=== PATIENT | male | born 1995 | race American Indian/Alaskan Native ===

== ENCOUNTER 2017-02-17 09:05 | Emergency (ER) | payer OTHER ==
--- NOTE | 2017-02-17 11:08 | XRay Report ---
RIGHT ANKLE: Injury, pain. The bones are well mineralized with normal bony contours and joint alignment. No fractures or destructive changes are noted and the adjacent soft tissues are normal. IMPRESSION: Normal study. RIGHT FOOT: Injury, pain. The bony architecture is intact. Bony alignment is normal. No soft tissue abnormalities are seen. The joint spaces appear preserved. IMPRESSION: Normal right foot.
--- NOTE | 2017-02-17 14:05 | Emergency Department Report ---
ED Lower Extremity HPI - General Chief Complaint: Extremity Injury, Lower Stated Complaint: FALL,RIGHT ANKLE INJURY Time Seen by Provider: 02/17/17 14:04 Source: patient, family Mode of arrival: Wheelchair Limitations: No Limitations - History of Present Illness Initial Comments: Patient here report that he fell down approximately 11 steps last night. He said it injured his right foot and ankle. Pain is 8 out of 10 and throbbing/ aching. Worse with weight. Better with resting. He reports swelling to right foot. Denies any numbness or tingling. Denies any head injury. He said he is unable to weight-bear. Complaint: ankle injury, foot injury, fall -: Last night Injury: Ankle: Right (pain after falling), Foot: Right (pain after falling) Type of Injury: other (fell downstairs) Place: home Severity: severe Severity scale (0 -10): 8 Improves With: rest Worsens With: weight bearing, palpation Context: fall Associated Symptoms: swelling, unable to bear weight. denies: numbness, tingling Treatments Prior to Arrival: splint (none) - Related Data Previous Rx's Medication Instructions Recorded Last Taken Type traMADol [Ultram 50 MG tab] 50 mg PO Q6HR PRN #20 tablet 02/14/13 Unknown Rx Ibuprofen [Motrin 800 MG tab] 800 mg PO TID PRN #15 tablet 02/17/17 Unknown Rx Allergies Allergy/AdvReac Type Severity Reaction Status Date / Time No Known Allergies Allergy Verified 02/17/17 09:37 ED Review of Systems ROS: Stated complaint: FALL,RIGHT ANKLE INJURY Other details as noted in HPI Comment: All other systems reviewed and negative Constitutional: no symptoms reported Respiratory: no symptoms reported Cardiovascular: denies: chest pain, palpitations, dyspnea on exertion, edema, syncope, paroxysmal nocturnal dyspnea Gastrointestinal: denies: abdominal pain, nausea, vomiting, diarrhea Musculoskeletal: joint swelling, arthralgia. denies: back pain, myalgia Skin: denies: rash Neurological: abnormal gait. denies: headache, weakness, numbness, paresthesias , confusion, vertigo ED Past Medical Hx - Past Medical History Previous Medical History?: No - Surgical History Past Surgical History?: No - Family History Family history: no significant - Social History Smoking Status: Current Every Day Smoker Substance Use Type: None - Medications Home Medications: Home Medications Medication Instructions Recorded Confirmed Last Taken Type traMADol [Ultram 50 MG tab] 50 mg PO Q6HR PRN #20 tablet 02/14/13 Unknown Rx Ibuprofen [Motrin 800 MG tab] 800 mg PO TID PRN #15 tablet 02/17/17 Unknown Rx ED Physical Exam - General Limitations: No Limitations General appearance: alert, in no apparent distress - Head Head exam: Present: atraumatic, normocephalic, normal inspection - Expanded Head Exam Expanded Head exam: Absent: laceration, abrasion, contusion, hematoma, racoon eyes, flores's sign, general tenderness, tenderness of temporal artery, CSF rhinorrhea , CSF otorrhea - Eye Eye exam: Present: normal appearance, PERRL, EOMI. Absent: nystagmus, periorbital swelling, periorbital tenderness Pupils: Absent: normal accommodation - Neck Neck exam: Present: normal inspection, full ROM, other (No C-spine tenderness). Absent: tenderness, meningismus, lymphadenopathy - Expanded Neck Exam Expanded Neck exam: Absent: tenderness, midline deformity, anterior neck swelling, tracheal deviation - Respiratory Respiratory exam: Present: normal lung sounds bilaterally. Absent: respiratory distress, chest wall tenderness, accessory muscle use - Cardiovascular Cardiovascular Exam: Present: regular rate, normal rhythm, normal heart sounds. Absent: systolic murmur, diastolic murmur - GI/Abdominal GI/Abdominal exam: Present: soft, normal bowel sounds. Absent: distended, tenderness, guarding, rebound, rigid, organomegaly, mass, bruit, pulsatile mass , hernia - Extremities Exam Extremities exam: Present: normal inspection, tenderness (to palpate the right outer foot and ankle), normal capillary refill, joint swelling (mild swelling to right foot), other (No clubbing, cyanosis or edema noted to extremities. +2 pulses to extremities. No neurovascular compromise.). Absent: full ROM ( patient with limited range of motion to right foot due to injury), pedal edema, calf tenderness - Expanded Lower Extremity Exam Right Hip exam: Present: normal inspection, full ROM, pelvic stability. Absent: tenderness, swelling, abrasion, laceration, ecchymosis, deformity, crepidus, dislocation, erythema, external rotation, internal rotation, shortening Upper Leg exam: Present: normal inspection, full ROM. Absent: tenderness, swelling, abrasion, laceration, ecchymosis, deformity, crepidus, dislocation, erythema Knee exam: Present: normal inspection, full ROM, full knee extension. Absent: tenderness, swelling, abrasion, laceration, ecchymosis, deformity, crepidus, dislocation, erythema, effusion, pain w/ pronation/supination, posterior draw sign, pain/laxity with valgus, pain/laxity with varus Lower Leg exam: Present: normal inspection, full ROM. Absent: tenderness, swelling, abrasion, laceration, ecchymosis, deformity, crepidus, dislocation, erythema, palpable cord, Jerod's sign Ankle exam: Present: normal inspection, full ROM, tenderness (end of the palpate to right ankle). Absent: swelling, abrasion, laceration, ecchymosis, deformity, crepidus, dislocation, erythema Foot/Toe exam: Present: normal inspection, tenderness, swelling. Absent: full ROM (patient unable to weight-bear to right foot, tender to palpate the right foot with mild swelling), abrasion, laceration, ecchymosis, deformity, crepidus , dislocation, erythema, amputation, puncture wound, foreign body, calcaneal tenderness, tenderness at base of 5th metatarsal, nail avulsion, subungual hematoma Neuro vascular tendon exam: Present: no vascular compromise, motor deficit (+3/ 5 strength to right foot.), significant pain with passive ROM of distal joint. Absent: pulse deficit, abnormal cap refill, sensory deficit, tendon deficit, extremity cold to touch, pallor, abnormal 2-point discrimination, decreased fine /light touch, foot drop, peroneal nerve deficit Gait: Positive: unable to bear weight - Back Exam Back exam: Present: normal inspection, full ROM. Absent: tenderness, CVA tenderness (R), CVA tenderness (L), muscle spasm, paraspinal tenderness, vertebral tenderness, rash noted - Neurological Exam Neurological exam: Present: alert, oriented X3, abnormal gait (patient with abnormal gait to the right lower extremity due to right foot and ankle pain), motor sensory deficit (+3/5 strength to right foot), reflexes normal - Psychiatric Psychiatric exam: Present: normal affect, normal mood - Skin Skin exam: Present: warm, dry, intact, normal color. Absent: rash ED Course Vital Signs 02/17/17 09:38 Temperature 98.2 F Pulse Rate 84 Respiratory 18 Rate Blood Pressure 141/78 O2 Sat by Pulse 100 Oximetry - Reevaluation(s) Reevaluation #1: 02/17/17 14:37 Patient given Motrin 800 mg 1 tablet and Percocet 5/325 one tablet in emergency room for injury to right foot and ankle. See procedure note for splinting details - Orthopedic Splinting/Casting Injury #1 Side: right Lower Extremity Injury Location: ankle, foot Lower Extremity Immobilizer: Jaden wrap Other Orthopedic Equipment: crutches Additional Comments: Patient with good neurovascular status post splinting. ED Lower Extremity MDM - Radiology Data Radiology results: report reviewed X-ray of right foot and ankle reveals on exam without any bony abnormality or soft tissue swelling. - Medical Decision Making ED course: Patient presented to the emergency room for right foot and ankle pain status post falling down 11 steps last night. He said he is unable to bear weight to his right lower extremity. Physical findings for mild swelling to right foot and tender to palpate the right foot and ankle. No deformity is noted. X-ray findings for a normal exam right foot and ankle without any bony abnormalities or soft tissue injury. Patient was given Motrin 800 mg and Percocet 5/325 one tablet in the emergency room to manage pain. I explain to patient that he needs to rest, ice, compress and elevate affected area for 72 hours and if he still has pain that he'll need to follow-up with orthopedic doctor in 72 hours. I also plan to him that x-ray of his foot and ankle was normal. Patient discharged home with prescription for Motrin and crutches given. Critical care attestation.: If time is entered above; I have spent that time in minutes in the direct care of this critically ill patient, excluding procedure time. ED Disposition Clinical Impression: Arthralgia of multiple sites, Accidental fall on or from other stairs or steps Sprain of foot, right Qualifiers: Encounter type: initial encounter Qualified Code(s): S93.601A - Unspecified sprain of right foot, initial encounter Disposition: - TO HOME OR SELFCARE Is pt being admited?: No Does the pt Need Aspirin: No Condition: Stable Instructions: Foot Sprain (ED), Ankle Exercises (GEN), RICE Therapy (ED), Arthralgia (ED) Additional Instructions: Take medication as prescribed . Referred to discharge instruction on splint care. Referred to discharge instruction in Rice therapy. These follow-up with orthopedic doctor as instructed. Prescriptions: Ibuprofen [Motrin 800 MG tab] 800 mg PO TID PRN #15 tablet PRN Reason: Pain, Moderate (4-6) Referrals: PRIMARY CARE, [Primary Care Provider] - 3-5 Days JEZ FARNSWORTH MD [Staff Physician] - 02/20/17 Forms: Work/School Release Form(ED)
[2017-02-17] MEDS ORDERED: PERCOCET 5/325 PO ONE (14:09)
[2017-02-17] MEDS ORDERED: MOTRIN PO ONE (14:09)
[2017-02-17 15:05] VITALS: BP 127/75
== END 2017-02-17 15:00 | disposition home or self-care (01) ==
LOC: ED 09:05
DX: S93.601A Unspecified sprain of right foot, initial encounter (principal); F17.200 Nicotine dependence, unspecified, uncomplicated; W10.8XXA Fall (on) (from) other stairs and steps, initial encounter; Y93.89 Activity, other specified; Y92.89 Other specified places as the place of occurrence of the external cause; Y99.8 Other external cause status